=== PATIENT | male | born 1995 | race Caucasian/White ===

== ENCOUNTER 2017-12-26 05:01 | Observation (INO) | payer BC ==
[2017-12-26] MEDS ORDERED: NORMAL SALINE 1000 ML 1,000 ML IV ONE (07:14)
--- NOTE | 2017-12-26 07:25 | ER Document Report ---
ED GI/ - General Information source: Patient TRAVEL OUTSIDE OF THE [place] IN LAST 30 DAYS: No <BRYNN BERG - Last Filed: 12/26/17 07:48> <REGINO LOWRY - Last Filed: 12/26/17 08:53> - General Chief Complaint: Abdominal Pain Stated Complaint: ABDOMINAL PAIN Time Seen by Provider: 12/26/17 06:43 Notes: 22-year-old male who presents to the emergency department today with complaints of abdominal pain. Patient states his pain began yesterday afternoon it was more generalized however as the day progressed the pain localized to the right lower quadrant and became much more severe. Patient states his pain is exacerbated with any movement. Patient states his last bowel movement was yesterday afternoon and it was normal. Patient denies any vomiting, fevers, chills, diarrhea, or radiation of pain to his back. (BRYNN BERG) - Related Data Allergies/Adverse Reactions: No Known Allergies Allergy (Unverified 12/26/17 05:03) Past Medical History - General Information source: Patient - Social History Smoking Status: Never Smoker Cigarette use (# per day): No Frequency of alcohol use: None Drug Abuse: None Occupation: [employer] Family History: Reviewed & Not Pertinent <BRYNN BERG - Last Filed: 12/26/17 07:48> Review of Systems - Review of Systems Constitutional: denies: Chills, Fever EENT: No symptoms reported Cardiovascular: No symptoms reported Respiratory: No symptoms reported Gastrointestinal: See HPI, Abdominal pain. denies: Diarrhea, Nausea, Vomiting Genitourinary: No symptoms reported Male Genitourinary: No symptoms reported Musculoskeletal: No symptoms reported Skin: No symptoms reported Hematologic/Lymphatic: No symptoms reported Neurological/Psychological: No symptoms reported -: Yes All other systems reviewed and negative <BRYNN BERG - Last Filed: 12/26/17 07:48> Physical Exam <BRYNN BERG - Last Filed: 12/26/17 07:48> <REGINO LOWRY - Last Filed: 12/26/17 08:53> - Vital signs Vitals: Temp Pulse Resp BP Pulse Ox 98.9 F 82 18 121/73 99 12/26/17 05:05 12/26/17 05:05 12/26/17 05:05 12/26/17 05:05 12/26/17 05:05 - Notes Notes: Physical Exam: General: Alert, appears uncomfortable. HEENT: Normocephalic. Atraumatic. PERRL. Extraocular movements intact. Oropharynx clear. Neck: Supple. Non-tender. Respiratory: No respiratory distress. Clear and equal breath sounds bilaterally. Cardiovascular: Regular rate and rhythm. Abdominal: Palpation of the LLQ causes pain in the RLQ. RLQ is only lightly palpated secondary to pain with large amounts of guarding. Tenderness is worst at McBurney's point. No distension. Hypoactive Bowel Sounds. Back: Non-tender. No deformity or step off. No CVA ttp. Extremities: Moves all four extremities. Upper extremities: Normal inspection. Normal ROM. Lower extremities: Normal inspection. No edema. Normal ROM. Neurological: Normal cognition. AAOx4. Normal speech. Psychological: Normal affect. Normal Mood. Skin: Warm. Dry. Normal color. (BRYNN BERG) Course - Laboratory Result Diagrams: 12/26/17 07:45 12/26/17 07:45 - Consults Dr. Hodge Time consulted: 08:40 Consulted provider: will come to ER <REGINO LOWRY - Last Filed: 12/26/17 08:53> - Vital Signs Vital signs: Temp Pulse Resp BP Pulse Ox 98.9 F 82 18 121/73 99 12/26/17 05:05 12/26/17 05:05 12/26/17 05:05 12/26/17 05:05 12/26/17 05:05 - Laboratory Laboratory results interpreted by me: 12/26/17 12/26/17 07:45 07:45 WBC 14.9 H Absolute Neutrophils 11.2 H Total Bilirubin 2.4 H Direct Bilirubin 0.5 H Discharge <BRYNN BERG - Last Filed: 12/26/17 07:48> - Discharge Admitting Provider: Surgicalist Unit Admitted: OR <REGINO LOWRY - Last Filed: 12/26/17 08:53> - Discharge Clinical Impression: Appendicitis Qualifiers: Appendicitis type: acute appendicitis Acute appendicitis type: unspecified acute appendicitis type Qualified Code(s): K35.80 - Unspecified acute appendicitis Condition: Stable Disposition: ADMITTED INPATIENT Referrals: CYNTHIA DEL ROSARIO DO [ACTIVE STAFF] - Follow up as needed Scribe Attestation: 12/26/17 08:52 I personally performed the services described in the documentation, reviewed and edited the documentation which was dictated to the scribe in my presence, and it accurately records my words and actions. (REGINO LOWRY) Scribe Documentation - Scribe Written by Scribe:: Mike Hamm, 12/26/2017 0758 acting as scribe for :: Gavin <BRYNN BERG - Last Filed: 12/26/17 07:48>
[2017-12-26 07:56] LABS: ABSOLUTE LYMPHOCYTES (AUTO) 2.4 10^3/uL (0.5-4.7); ABSOLUTE MONOCYTES (AUTO) 1.2 10^3/uL (0.1-1.4); ABSOLUTE NEUT (AUTO) 11.2 10^3/uL (1.7-8.2); BASOPHILS % (AUTO) 0.3 % (0-2); EOSINOPHILS % (AUTO) 0.3 % (0-6); HEMOGLOBIN 14.1 g/dL (13.5-17.0); LYMPHOCYTES % (AUTO) 16.4 % (13-45); MEAN CORPUSCULAR HGB CONC 35.3 g/dL (32.0-36.0); MEAN CORPUSCULAR VOLUME 88 fl (80-97); MONOCYTES % (AUTO) 7.9 % (3-13); PLATELET COUNT 253 10^3/uL (150-450); RED BLOOD COUNT 4.56 10^6/uL (4.35-5.55); RED CELL DISTRIBUTION WIDTH 12.8 % (11.5-14.0); SEGMENTED NEUTROPHILS % (AUTO) 75.1 % (42-78); TOTAL CELLS COUNTED % (AUTO) 100 %; WHITE BLOOD COUNT 14.9 10^3/uL (4.0-10.5)
[2017-12-26 08:21] LABS: ALANINE AMINOTRANSFERASE 26 U/L (21-72); ALBUMIN 4.4 g/dL (3.5-5.0); ALKALINE PHOSPHATASE 74 U/L (38-126); ANION GAP 11 (5-19); ASPARTATE AMINO TRANSFERASE 24 U/L (17-59); BILIRUBIN,DIRECT 0.5 mg/dL (0.0-0.4); BILIRUBIN,TOTAL 2.4 mg/dL (0.2-1.3); BLOOD UREA NITROGEN 13 mg/dL (7-20); CALCIUM 9.9 mg/dL (8.4-10.2); CARBON DIOXIDE 25 mmol/L (22-30); CHLORIDE 104 mmol/L (98-107); GLUCOSE 98 mg/dL (75-110); POTASSIUM 4.2 mmol/L (3.6-5.0); SODIUM 139.7 mmol/L (137-145); TOTAL PROTEIN 7.2 g/dL (6.3-8.2)
[2017-12-26] MEDS ORDERED: PIPERACILLIN/TAZOBACTAM 3.375 GM VIAL IV ONE (08:42)
--- NOTE | 2017-12-26 08:49 | PDOC H&P ---
History of Present Illness Admission Date/PCP: 12/26/17 Patient complains of: RLQ abdominal pain History of Present Illness: LUCAS KIMBALL III is a 22 year old male with a hx of RLQ pain, intense nausea x 12 hours. Social History Smoking Status: Never Smoker Family History Family History: Reviewed & Not Pertinent Parental Family History Reviewed: No Children Family History Reviewed: No Sibling(s) Family History Reviewed.: No Medication/Allergy Allergies/Adverse Reactions: No Known Allergies Allergy (Unverified 12/26/17 05:03) Physical Exam Vital Signs: Temp Pulse Resp BP Pulse Ox 98.9 F 82 18 121/73 99 12/26/17 05:05 12/26/17 05:05 12/26/17 05:05 12/26/17 05:05 12/26/17 05:05 Intake & Output 12/25/17 12/26/17 12/27/17 06:59 06:59 06:59 Intake Total 1000 Balance 1000 Weight 72.3 kg General appearance: PRESENT: no acute distress, well-developed Head exam: PRESENT: atraumatic Eye exam: PRESENT: EOMI Mouth exam: PRESENT: moist, neck supple Neck exam: PRESENT: full ROM Respiratory exam: PRESENT: clear to auscultation agustin Cardiovascular exam: PRESENT: RRR GI/Abdominal exam: PRESENT: soft, tenderness - right lower quadrant with grimacing Results Laboratory Results: 12/26/17 07:45 12/26/17 07:45 12/26/17 12/26/17 07:45 07:45 WBC 14.9 H RBC 4.56 Hgb 14.1 Hct 40.0 MCV 88 MCH 31.0 MCHC 35.3 RDW 12.8 Plt Count 253 Seg Neutrophils % 75.1 Lymphocytes % 16.4 Monocytes % 7.9 Eosinophils % 0.3 Basophils % 0.3 Absolute Neutrophils 11.2 H Absolute Lymphocytes 2.4 Absolute Monocytes 1.2 Absolute Eosinophils 0.0 Absolute Basophils 0.0 Sodium 139.7 Potassium 4.2 Chloride 104 Carbon Dioxide 25 Anion Gap 11 BUN 13 Creatinine 0.80 Est GFR ( Amer) > 60 Est GFR (Non-Af Amer) > 60 Glucose 98 Calcium 9.9 Total Bilirubin 2.4 H AST 24 ALT 26 Alkaline Phosphatase 74 Total Protein 7.2 Albumin 4.4 Assessment & Plan - Plan Summary Plan Summary: A/ Right lower quadrant abdominal pain PE with pain and grimacing WBC 15k Negative UA P/ Laparoscopic appendectomy, possible open today Procedure, risks, benefits, complications explained to the patient, his questions were answered, and he decided to proceed.
[2017-12-26] MEDS: NORMAL SALINE 1000 ML 1,000 ML IV PRN ×2 (09:34→23:10)
[2017-12-26] MEDS ORDERED: ACETAMINOPHEN 1,000 MG/100 ML RTUPB IV ONE (09:38)
[2017-12-26] MEDS ORDERED: PROPOFOL INJ 200 MG/20 ML VIAL IV ONE (09:38)
[2017-12-26] MEDS ORDERED: HYDROMORPHONE HCL INJ/PF 2 MG/ML AMPULE ONE (09:39)
[2017-12-26] MEDS ORDERED: DEXAMETHASONE SOD PHOSPHATE INJ 4 MG/1 ML VIAL ONE (09:40)
[2017-12-26] MEDS ORDERED: MIDAZOLAM 2 MG/2 ML INJ ONE (09:40)
[2017-12-26] MEDS ORDERED: FENTANYL CITRATE INJ/PF 100 MCG/2 ML AMPUL ONE (09:40)
[2017-12-26] MEDS ORDERED: ONDANSETRON HCL INJ/PF 4 MG/2 ML SDV ONE (09:40)
[2017-12-26] MEDS ORDERED: ROCURONIUM BROMIDE INJ 50 MG/5 ML VIAL IV ONE (09:47)
[2017-12-26] MEDS ORDERED: SUCCINYLCHOLINE CHLORIDE INJ 200 MG/10 ML VIAL ONE (09:47)
[2017-12-26 09:52] LABS: APPEARANCE,URINE CLEAR; BILIRUBIN,URINE NEGATIVE (NEGATIVE); COLOR,URINE YELLOW; GLUCOSE, URINE NEGATIVE (NEGATIVE); KETONES,URINE TRACE mg/dL (NEGATIVE); LEUKOCYTE ESTERASE,URINE NEGATIVE (NEGATIVE); NITRITE,URINE NEGATIVE (NEGATIVE); PROTEIN,URINE NEGATIVE (NEGATIVE); URINE SPECIFIC GRAVITY 1.013; UROBILINOGEN,URINE NEGATIVE mg/dL (<2.0)
[2017-12-26] MEDS ORDERED: DIPHENHYDRAMINE HCL 50 MG/ML VIAL IV PRN (10:45)
[2017-12-26] MEDS ORDERED: FENTANYL CITRATE INJ/PF 100 MCG/2 ML AMPUL IV PRN ×3 (10:45)
[2017-12-26] MEDS ORDERED: MORPHINE SULFATE 10 MG/ML INJ IV PRN (10:45)
[2017-12-26] MEDS ORDERED: MEPERIDINE HCL/PF INJ 25 MG/1 ML DISP.SYRIN IV PRN (10:45)
[2017-12-26] MEDS ORDERED: PROMETHAZINE HCL INJ 25 MG/1 ML VIAL IV PRN (10:45)
[2017-12-26] MEDS ORDERED: BUPIVACAINE HCL 0.5%-EPI 1:200000 INJ/PF 30 ML VIAL ONE (11:54)
[2017-12-26] MEDS ORDERED: ONDANSETRON HCL INJ/PF 4 MG/2 ML SDV IV PRN (13:51)
--- NOTE | 2017-12-26 13:51 | Operative Report ---
Nonrecallable Operative Report DATE OF SURGERY: 12/26/17 PREOPERATIVE DIAGNOSIS: RLQ abdominal pain POSTOPERATIVE DIAGNOSIS: same. acute appendicitis OPERATION: laparoscopic appendectomy TISSUE REMOVED OR ALTERED: appendix COMPLICATIONS: none ESTIMATED BLOOD LOSS: < 25 mL INTRAOPERATIVE FINDINGS: acute appendicitis PROCEDURE: see dictation
--- NOTE | 2017-12-26 16:21 | OPERATIVE REPORT E ---
Operative Report NAME: LUCAS KIMBALL : 1995 AGE: 22Y DATE OF SURGERY: 12/26/2017 ROOM: 207 PREOPERATIVE DIAGNOSIS: ACUTE APPENDICITIS. POSTOPERATIVE DIAGNOSIS: ACUTE APPENDICITIS. OPERATION: Laparoscopic appendectomy. SURGEON: LEONELA DELA CRUZ M.D. ANESTHESIA: General plus 30 mL of 1% lidocaine with epinephrine. ESTIMATED BLOOD LOSS: None. COMPLICATIONS: None. FLUIDS: 900. URINE OUTPUT/DRAIN: None. INDICATIONS AND FINDINGS: This is a healthy 22-year-old male who presented to the emergency room complaining of right upper quadrant pain with intense nausea. White blood cell count was 14.9. Urinalysis was negative. Physical exam showed definite pinpoint tenderness over right upper quadrant with grimacing and guarding. Decision was made not to do any imaging studies and to treat the patient according to the physical exam. The patient was scheduled to undergo laparoscopic appendectomy versus open. Procedure, risks, benefits and complications were discussed with the patient and his questions answered. He decided to proceed. PROCEDURE: The procedure was done in the operating room. Patient was placed in supine position. General anesthesia induced by endotracheal intubation. Abdomen prepped and draped in usual fashion. Incision was made just above the umbilicus and a 5-mm port with Optiview adapter and scope was inserted through abdominal wall into the peritoneal cavity, and pneumoperitoneum was obtained. Under direct visualization, a 5-mm port was inserted into the right upper quadrant of the abdomen, following skin incision. Under direct visualization, the 5-mm port through the umbilicus was removed and replaced with a 12-mm port, followed by a 5-mm port inserted in the left lower quadrant. The patient was placed in Trendelenburg position with right side elevated. The appendix was identified, following the anterior tenia of the right colon. Found to be inflamed, with mild exudate around the appendix. The mesoappendix was divided with LigaSure and appendix stapled at the base. Extracted from the peritoneal cavity with Endo bag. The CO2 pneumoperitoneum was reestablished. The staple line was inspected and found to be intact. The umbilical fascial defect was closed with a [id number] 0 Vicryl suture using a fascial closure device. All instruments were removed. The CO2 pneumoperitoneum was released. The ports were removed. The fascial defect of the umbilicus closed with the previously placed 0 Vicryl suture. All skin incisions were then closed with 4-0 Vicryl running subcuticular suture and Dermabond. The patient tolerated the procedure well, extubated and transferred to the recovery room in satisfactory condition. DICTATING PHYSICIAN: LEONELA DELA CRUZ M.D. [id number] PHY#: [id number] ID: [id number] JOB#: [id number] ACCT: [id number] cc:LEONELA DELA CRUZ M.D. >
[2017-12-26] MEDS: PIPERACILLIN SODIUM/TAZOBACTAM 3.375 GM in NORMAL SALINE 100 ML IV SCH ×2 (18:16→23:03)
[2017-12-26] MEDS ORDERED: FAMOTIDINE INJ/PF 20 MG/2 ML SDV IV SCH (22:00)
[2017-12-26] MEDS: MORPHINE SULFATE 10 MG/ML INJ IV PRN (23:11)
[2017-12-27] MEDS ORDERED: ENOXAPARIN SODIUM INJ 40 MG/0.4 ML DISP.SYRIN SUBCUT SCH (06:00)
[2017-12-27] MEDS: MORPHINE SULFATE 10 MG/ML INJ IV PRN (06:09)
[2017-12-27] MEDS: PIPERACILLIN SODIUM/TAZOBACTAM 3.375 GM in NORMAL SALINE 100 ML IV SCH (06:11)
[2017-12-27] MEDS ORDERED: ENOXAPARIN SODIUM INJ 40 MG/0.4 ML DISP.SYRIN SUBCUT ONE (06:37)
[2017-12-27] MEDS: NORMAL SALINE 1000 ML 1,000 ML IV PRN (07:21)
[2017-12-27 07:49] LABS: ABSOLUTE LYMPHOCYTES (AUTO) 2.3 10^3/uL (0.5-4.7); ABSOLUTE MONOCYTES (AUTO) 0.9 10^3/uL (0.1-1.4); ABSOLUTE NEUT (AUTO) 7.9 10^3/uL (1.7-8.2); BASOPHILS % (AUTO) 0.1 % (0-2); EOSINOPHILS % (AUTO) 0.1 % (0-6); HEMATOCRIT 37.4 % (37.9-51.0); HEMOGLOBIN 13.4 g/dL (13.5-17.0); LYMPHOCYTES % (AUTO) 20.4 % (13-45); MEAN CORPUSCULAR HEMOGLOBIN 31.4 pg (27.0-33.4); MEAN CORPUSCULAR HGB CONC 35.9 g/dL (32.0-36.0); MEAN CORPUSCULAR VOLUME 88 fl (80-97); MONOCYTES % (AUTO) 8.2 % (3-13); PLATELET COUNT 226 10^3/uL (150-450); RED BLOOD COUNT 4.27 10^6/uL (4.35-5.55); RED CELL DISTRIBUTION WIDTH 12.7 % (11.5-14.0); SEGMENTED NEUTROPHILS % (AUTO) 71.2 % (42-78); TOTAL CELLS COUNTED % (AUTO) 100 %; WHITE BLOOD COUNT 11.1 10^3/uL (4.0-10.5)
[2017-12-27 07:59] LABS: ANION GAP 6 (5-19); BLOOD UREA NITROGEN 7 mg/dL (7-20); CALCIUM 9.2 mg/dL (8.4-10.2); CARBON DIOXIDE 27 mmol/L (22-30); CHLORIDE 105 mmol/L (98-107); GLUCOSE 96 mg/dL (75-110); POTASSIUM 4.4 mmol/L (3.6-5.0); SODIUM 138.1 mmol/L (137-145)
--- NOTE | 2017-12-27 09:24 | HISTORY AND PHYSICAL E ---
History and Physical NAME: LUCAS KIMBALL : 1995 AGE: 22Y ADMITTED: 12/26/2017 ROOM: 207 REASON FOR ADMISSION: Acute abdominal pain. The patient is a 22-year-old male who presented to the emergency department complaining of abdominal pain, anorexia, right lower quadrant tenderness. He was found to have a leukocytosis. Surgery was consulted and the patient was felt to clinically have acute appendicitis. The patient was admitted to the surgical service for definitive management. The patient was taken to the operating room by Dr. Reji Dela Cruz on the early afternoon of 12/26/2017. The patient underwent laparoscopic appendectomy uneventfully. He was found to have acute appendicitis without rupture. The patient tolerated the procedure well, postoperatively had no complications, diet was advanced and his pain was adequately managed. By the following day, he was ready for discharge home. FINAL DIAGNOSIS: ACUTE APPENDICITIS, STATUS POST LAPAROSCOPIC APPENDECTOMY. DISPOSITION: The patient will be discharged to home in the care of his family. Follow up with [facility] approximately 1 week; prescription for Toradol provided; out of work note provided until the patient reassessed by [facility] in the office. DICTATING PHYSICIAN: CHRISTA SHIN M.D. [id number] PHY#: [id number] ID: [id number] JOB#: [id number] ACCT: [id number] cc:REJI DELA CRUZ M.D. >
[2017-12-27 10:17] VITALS: BP 121/73
== END 2017-12-27 11:22 | disposition home or self-care (01) ==
LOC: ER 05:01 → EH 08:56 → INTOOBSV 08:56 → 2N 10:55
PROVIDERS: ADMIT Surgery; ATTEND Surgery
PROC: 0DTJ4ZZ Resection of Appendix, Percutaneous Endoscopic Approach (ICD-10-PCS; principal; 2017-12-26 14:00)
DX: K37 Unspecified appendicitis (principal)
CPT/HCPCS: 99285; 96360; 36415 ×2; 85025 ×2; 80048; 80053; 81001; 88305 ×2; 44970; G0378 ×3; J2250; J3490 ×2; J1100; J3010; J2270 ×2; J1650; J1170; J0330; J2405; J2704; S0028; J2543; J0131; 840